=== PATIENT | male | born 1975 | race Caucasian/White ===

== ENCOUNTER 2019-06-01 12:10 | Emergency (ER) | payer OTHER, SELFPAY ==
[~2019-06-01] VITALS: Ht 175.3 cm; Wt 88.0 kg
[2019-06-01 12:16] VITALS: BP 124/81
[2019-06-01] MEDS ORDERED: FLUORESCEIN OPHTHALMIC 1 MG STRIP EACHEYE ONE (12:30)
[2019-06-01] MEDS ORDERED: PROPARACAINE OPHTH 0.5%, 15ML EACHEYE ONE (12:30)
[2019-06-01] MEDS ORDERED: FLUORESCEIN OPHTHALMIC 1 MG STRIP ONE (13:22)
[2019-06-01] MEDS ORDERED: PROPARACAINE OPHTH 0.5%, 15ML ONE (13:22)
[2019-06-01] MEDS ORDERED: DIPH,PERTUSS(ACELL),TET VAC/PF 0.5 ML IM-VACC ONE ×2 (13:58→14:00)
== END 2019-06-01 14:20 | disposition home or self-care (01) ==
LOC: ED 14:00
DX: H16.042 Marginal corneal ulcer, left eye (principal)
CPT/HCPCS: 90471; 90715